=== PATIENT | male | born 2005 | race Caucasian/White ===

== ENCOUNTER 2023-12-14 10:28 | Emergency (ER) | payer SELFPAY ==
[2023-12-14 10:33] VITALS: BP 133/78; PULSE 98; RESP 16; TEMP 37.4; O2SAT 99
--- NOTE | 2023-12-14 10:51 | ED.GENADUL_ITS ---
Discharge Plan Disposition Patient Disposition: Home Condition: Stable Discharge Details Clinical Impression: Dental infection Primary Care Provider: Unknown,Unknown ED Provider: Shawn Christina Home Meds and New Rx's Prescriptions: New amoxicillin-pot clavulanate 875-125 mg tablet 1 tab PO BID Qty: 14 0RF Discharge Instructions Additional Instructions: Follow-up with a dentist as soon as you can You can take 600 mg of ibuprofen and 1000 mg of Tylenol every 6 hours as needed If you feel more ill or have any symptoms such as difficulty breathing or difficulty swallowing liquids return to the emergency department for reevaluation HPI General Mode of arrival: ambulatory . Date/Time Provider Initiated Documentation: 12/14/23 10:36 . Limitations to Documentation: no limitations . Information obtained by: patient . History of Present Illness 18 year old M presents to the emergency department with the chief complaint of Right lower molar pain, described as moderate, and it has been constant. No relieving factors improve symptom(s), No exacerbating factors reported . Patient notes no other symptoms.. Patient did receive the following treatments prior to arrival, none Related Data Home Medications Medication Instructions Recorded Confirmed amoxicillin 875 mg-potassium 1 tab PO BID #14 tabs 12/14/23 clavulanate 125 mg tablet Previous Rx's Medication Instructions Recorded amoxicillin 875 mg-potassium 1 tab PO BID #14 tabs 12/14/23 clavulanate 125 mg tablet Allergies Allergy/AdvReac Type Severity Reaction Status Date / Time No Known Allergies Allergy Verified 12/14/23 10:33 General Stated Complaint: DentalOral CARLENE: 4 Review of Systems All systems reviewed & are unremarkable except as noted in HPI and below Constitutional Constitutional: Denies chills, Denies fever(s) and Denies weakness ENT Ears, Nose, Mouth, and Throat: Denies change in voice Cardiovascular Cardiovascular: Denies chest pain and Denies dyspnea Respiratory Respiratory: Denies cough and Denies dyspnea Gastrointestinal Gastrointestinal: Denies abdominal pain, Denies nausea and Denies vomiting Musculoskeletal Musculoskeletal: Denies joint swelling Neurologic Neurologic: Denies weakness Exam Const General: no acute distress Orientation: alert HENMT Head: normal to inspection Ears: external ears normal General nose exam: external nose normal Mouth: moist mucous membranes Eyes General: appearance normal, both eyes and all related structures Neck Neck: normal visual inspection Resp Effort & Inspection: normal respiratory effort and able to speak in complete sentences Cardio Rate: regular rate Skin General skin exam: no rashes or lesions noted Neuro General: patient alert and patient oriented x3 Extrem General: normal to inspection Psych Mental Status: mental status grossly normal Course Vital Signs Vital signs: Vital Signs Temperature 37.4 C 12/14/23 10:33 Pulse 98 H 12/14/23 10:33 Respiratory Rate 16 12/14/23 10:33 Blood Pressure 133/78 12/14/23 10:33 Pulse Oximetry 99 12/14/23 10:33 Temperature 37.4 C 12/14/23 10:33 Temperature Source Temporal Artery Scan 12/14/23 10:33 Pulse 98 H 12/14/23 10:33 Respiratory Rate 16 12/14/23 10:33 Respiratory Effort Normal, Non-Labored 12/14/23 10:35 Blood Pressure 133/78 12/14/23 10:33 Blood Pressure Position Sitting 12/14/23 10:33 Pulse Oximetry 99 12/14/23 10:33 Oxygen Delivery Method Room Air 12/14/23 10:33 Oxygen Flow Rate 0 12/14/23 10:33 Pain Level 3 12/14/23 10:33 Medical Decision Making 18-year-old male who denies any chronic medical problems comes in with several days of right lower mid molar pain and some gum swelling. Denies any fevers, difficulty breathing or swallowing. He is alert and speaking in full sentences and appears well. He has mild swelling of the right lower jawline, no submandibular swelling, no pain over the hyoid or restricted neck movements, normal posterior pharynx with midline uvula, the right posterior lower molar is eroded and has mild swelling of the gum, no visible abscess that can drain. Has no findings on exam or history to suggest Irene's or other entities such as retropharyngeal abscess or peritonsillar abscess. Suspect dental abscess will start him on Augmentin and he will follow-up with a dentist as soon as possible, return precautions given Differential Diagnosis Differential Diagnosis: Pulpitis, dental abscess Quality:SDOH Health Related Social Needs: No Data to Display PFSH All Active Problems (Updated 12/14/23 @ 10:54 by Shawn Christina MD) Dental infection (Acute) Well adult on routine health check (Acute) Medical History (Updated 12/14/23 @ 10:54 by Shawn Christina MD) Smoker in home in own room Surgical History Circumcision Family History Mother Anxiety grandparent Essential hypertension Hyperlipidemia Social History (Updated 11/14/21 @ 17:29 by Henny Soni RN) Smoking/Tobacco Use Status: Never Second Hand Exposure: Yes Smoking risk assessment performed?: Yes Alcohol Intake: current Alcohol Intake frequency: holidays/special occasions only Drug use: Never Substance use type: does not use Household members: family Housing: apartment Communication Needs: None Education Level: high school Details: 12th grade () [employer] Pets and animals: Yes (1 cat) Pets and animals: cat(s) Do you feel safe at home: Yes Do you feel safe in your relationship?: Yes
[2023-12-14 11:05] VITALS: BP 133/78; PULSE 98; RESP 16; TEMP 37.4; O2SAT 99
[2023-12-14 11:06] VITALS: BP 133/78; PULSE 88; RESP 16; TEMP 37.4; O2SAT 99
== END 2023-12-14 11:05 | disposition home or self-care (01) ==
LOC: ER 11:04
PROVIDERS: Emergency Provider Emergency Medicine
DX: K04.7 Periapical abscess without sinus (principal); K04.01 Reversible pulpitis
CPT/HCPCS: 99283

== ENCOUNTER 2024-12-23 21:48 | Outpatient (REF) | payer SELFPAY | END 2024-12-23 21:49 | disposition home or self-care (01) | LOC: LBN 21:48 | PROVIDERS: Visit Provider Physician Assistant Medical | DX: J02.9 Acute pharyngitis, unspecified (principal) | CPT/HCPCS: 87070 ==